=== PATIENT | male | born 1960 | race Hispanic/Latino ===

== ENCOUNTER 2017-12-30 22:16 | Emergency (ER) | payer MEDICAID ==
--- NOTE | 2017-12-30 23:11 | C.PDOC ---
History Of Present Illness 57 year old male with PMHx of RA presents to the ED c/o exacerbation of chronic pain in bilateral joint of his legs. Patient states the swelling in his ankles and knees worsened today. Patient states he think he overexerted himself which caused him pain. Patient reports he is taking Enbrel and Methotrexate but no other pain medications. Patient used to take Prednisone 5 mg daily but he discontinued it himself a year ago. Patient denies fever, chills, nausea, vomit, abdominal pain, rash, injury, fall, trauma, weakness, numbness. Time Seen by Provider: 12/30/17 22:47 Chief Complaint (Nursing): Pain, Chronic History Per: Patient Onset/Duration Of Symptoms: Days Current Symptoms Are (Timing): Still Present Severity: Moderate Recent travel outside of the [place]: No Additional History Per: Patient Past Medical History Reviewed: Historical Data, Nursing Documentation, Vital Signs Vital Signs: Last Vital Signs Temp 98.8 F 12/30/17 22:30 Pulse 76 12/30/17 22:30 Resp 20 12/30/17 22:30 BP 141/96 H 12/30/17 22:30 Pulse Ox 98 12/30/17 22:30 - Medical History PMH: Arthritis (Rheumatoid Arthritis), Hypothyroidism Surgical History: No Surg Hx Family History: States: Unknown Family Hx - Social History Hx Alcohol Use: No Hx Substance Use: No - Immunization History Hx Tetanus Toxoid Vaccination: No Hx Influenza Vaccination: Yes Hx Pneumococcal Vaccination: No Review Of Systems Constitutional: Negative for: Fever, Chills Cardiovascular: Negative for: Chest Pain Respiratory: Negative for: Cough, Shortness of Breath Gastrointestinal: Negative for: Nausea, Vomiting, Abdominal Pain Musculoskeletal: Positive for: Leg Pain, Foot Pain Skin: Negative for: Rash Neurological: Negative for: Weakness, Numbness, Headache Physical Exam - Physical Exam Appears: Non-toxic, In Acute Distress Skin: Normal Color, Warm, Dry Head: Atraumatic, Normacephalic Eye(s): bilateral: Normal Inspection Neck: Normal ROM, Supple Chest: Symmetrical Cardiovascular: Rhythm Regular Respiratory: Normal Breath Sounds, No Rales, No Rhonchi, No Wheezing Gastrointestinal/Abdominal: Soft, No Tenderness, No Guarding, No Rebound Extremity: Normal ROM, Capillary Refill (< 2 seconds), Swelling (chronic joint of knees and ankles), Other (bilateral hand deformity consistent with RA) Pulses: Left Dorsalis Pedis: Normal, Right Dorsalis Pedis: Normal Neurological/Psych: Oriented x3, Normal Speech, Normal Cognition, Normal Motor, Normal Sensation Gait: Steady ED Course And Treatment O2 Sat by Pulse Oximetry: 98 (ON RA) Pulse Ox Interpretation: Normal Reevaluation Time: 00:06 Reassessment Condition: Improved Medical Decision Making Medical Decision Making: Plan: * Tylenol 650 mg PO * Toradol 60 mg IM * Prednisone 60 mg PO [facility] was reviewed with no record of previous activity found. Disposition Counseled Patient/Family Regarding: Diagnosis, Need For Followup, Rx Given - Disposition Referrals: YOUR,PMD [Other] Disposition: HOME/ ROUTINE Disposition Time: 00:07 Condition: IMPROVED Prescriptions: Tramadol HCl [Ultram] 50 mg PO QID #20 tab Instructions: Chronic Knee Pain (DC) Forms: [facility] - [employer] (Croatian) - Clinical Impression Clinical Impression: Chronic rheumatic arthritis, Chronic joint pain - Scribe Statement The provider has reviewed the documentation as recorded by the Scribe Sadiq Roland All medical record entries made by the Scribe were at my direction and personally dictated by me. I have reviewed the chart and agree that the record accurately reflects my personal performance of the history, physical exam, medical decision making, and the department course for this patient. I have also personally directed, reviewed, and agree with the discharge instructions and disposition.
[2017-12-31] MEDS ORDERED: Oxycodone/Acetaminophen 5/325 mg Tab PO STA (00:06)
[2017-12-31] MEDS ORDERED: Oxycodone/Acetaminophen 5/325 mg Tab ONE (00:18)
[2017-12-31 00:26] VITALS: BP 143/95; PULSE 67; RESP 18; TEMP 97.4; O2SAT 100
== END 2017-12-31 05:23 | disposition home or self-care (01) ==
LOC: C.ER 22:16
DX: M06.9 Rheumatoid arthritis, unspecified (principal); G89.29 Other chronic pain; M25.572 Pain in left ankle and joints of left foot; M25.571 Pain in right ankle and joints of right foot
CPT/HCPCS: 96372; 99284; J1885